=== PATIENT | female | born 1990 | race Hispanic/Latino ===

== ENCOUNTER 2018-12-23 12:34 | Emergency (ER) | payer MEDICAID ==
[2018-12-23 13:32] LABS: APPEARANCE,URINE Cloudy (CLEAR); BILIRUBIN,URINE Negative (NEGATIVE); COLOR,URINE Yellow (YELLOW); GLUCOSE, URINE (UA) Negative (NEGATIVE); KETONES,URINE Negative (NEGATIVE); LEUKOCYTE ESTERASE ,URINE Large (NEGATIVE); NITRATE,URINE Negative (NEGATIVE); OCCULT BLOOD,URINE Small (NEGATIVE); PROTEIN,URINE Negative (NEGATIVE)
[2018-12-23] MEDS ORDERED: KETOROLAC TROMETHAMINE 60 MG/2 ML VIAL ONE (14:07)
[2018-12-23] MEDS ORDERED: DIAZEPAM 5 MG TABLET ONE (14:07)
[2018-12-23 14:09] LABS: HCG,QUAL RESULT NEGATIVE (NEGATIVE)
[2018-12-23 14:28] LABS: BACTERIA,URINE Many /HPF (None Seen)
== END 2018-12-23 15:09 | disposition home or self-care (01) ==
LOC: EDH 12:34
DX: G57.02 Lesion of sciatic nerve, left lower limb (principal); N30.90 Cystitis, unspecified without hematuria; F12.10 Cannabis abuse, uncomplicated; Z72.0 Tobacco use
CPT/HCPCS: 81001; 81025; 96372; 99284; J1885

== ENCOUNTER 2024-11-17 18:09 | Emergency (ER) | payer MEDICARE, MEDICAID ==
[~2024-11-17] VITALS: Ht 152.4 cm; Wt 63.5 kg
--- NOTE | 2024-11-17 19:37 | ERN ---
General Chief Complaint: Eye Problems Stated Complaint: BILATERAL EYE, EAR PAIN Time Seen by MD: 18:29 Time Seen by Midlevel: 18:29 Source: patient History of Present Illness Initial Comments 34-year-old female presenting to the ER for evaluation of eye discomfort. Patient describes her eye discomfort as "zooming in and out". She became anxious shortly after so she decided to report to the ER for further evaluation Allergies: Coded Allergies: No Known Allergies (Unverified Allergy, Unknown, 12/23/18) Home Meds Active Scripts Hydroxyzine HCl (Hydroxyzine HCl) 10 Mg Tablet, 1 TAB PO BID for anxiety for 30 Days, #60 TAB 0 Refills Prov:ANTWON PULIDO 11/17/24 Past Medical History Past Medical History: Anxiety Past Surgical History: None Female( History) LMP: Nov 10, 2024 ROS Dictation CONSTITUTIONAL: Negative except for HPI HEAD/FACE: Negative except for HPI EENT: Negative except for HPI RESPIRATORY: Negative except for HPI GASTROINTESTINAL/ABDOMINAL: Negative except for HPI GENITOURINARY: Negative except for HPI MUSCULOSKELETAL: Negative except for HPI INTEGUMENTARY: Negative except for HPI NEUROLOGICAL/PSYCH: Negative except for HPI HEMATOLOGIC/LYMPHATIC: Negative except for HPI All Systems Negative, Except as noted above. 13 point review of systems assessed and all negative except for above. Physical Exam Physical Exam Dictation Vital Signs reviewed General Appearance: Alert, oriented x 3, no acute distress, well developed, nourished. Head and Face: non-traumatic. Eyes: PERRL, pink conjunctivas, eyelid no trauma, anterior chamber with arcus senilis. Ears: Pinnas intact and no signs of trauma or erythema ear canals clear and no discharge TM no erythema Nose: No discharge, no bleeding. Oropharynx: Mouth normal, tongue pink, pharynx clear,no erythema, tonsils no exudates, no abscesses noted, mucous membrane moist Neck: Supple, non-tender, no thyromegaly, no masses, no JVD, no bruits Breast:Deferred Chest:No tenderness, no crepitus, no paradoxical movement, no retractions Lungs:Clear, well-ventilated, symmetric, no rales, no wheezing, no rhonchi, no stridor, good breath sounds bilaterally Heart: Regular rate, regular rhythm, no murmur, no gallops Vascular: no peripheral edema, Abdomen: Soft, positive bowel sounds, nondistended, no guarding, nontender, no rebound, no masses no hepatomegaly, no splenomegaly, no Watkins's sign, no hernias. Rectal: Deferred Genital: Deferred Neurological: Normal speech, motor function intact, sensory function intact Musculoskeletal: Neck nontender, full range of motion, back nontender, full range of motion, Extremities: nontender, full range of motion Skin: Color pink, dry, no turgor, no rash, no lacerations, no abrasions, no contusions. Lymphatic: Deferred MDM MDM: Differential diagnosis: Wellness examination, conjunctivitis, anxiety There are no social concerns with this patient. Prescription drug management Prescriptions will include: Hydroxyzine Medical management and examination interpretation discussions were had by me with other qualified healthcare professionals as indicated for the patient's care. ED Course Vital Signs Date Time Temp Pulse Resp B/P (MAP) Pulse Ox O2 Delivery O2 Flow Rate FiO2 11/17/24 20:04 97.9 85 14 132/86 100 Room Air* 0 21 11/17/24 18:10 98.2 86 16 120/84 99 Room Air 0 DX & DISP Disposition: Discharge Departure Impression: Primary Impression: Anxiety Condition: Stable Scripts Hydroxyzine HCl (Hydroxyzine HCl) 10 Mg Tablet 1 TAB PO BID for anxiety for 30 Days, #60 TAB 0 Refills Prov: ANTWON PULIDO 11/17/24 Referrals: MONTSE MORALES (PCP) Time of Disposition: 19:53 I have reviewed the case, and I agree with, Diagnosis and Plan I performed the substantive portion of the visit. I have reviewed and personally made and approve the management plan that is documented in the note by myself or the XAVIER. I acknowledge for responsibility for the patient's management plan. ANTWON PULIDO Nov 17, 2024 19:37
[2024-11-17] MEDS ORDERED: HYDR-3830 PO (19:54)
[2024-11-17 20:04] VITALS: BP 132/86; PULSE 85; RESP 14; TEMP 97.8; O2SAT 100
== END 2024-11-17 20:05 | disposition home or self-care (01) ==
LOC: EDH 18:09
DX: F41.9 Anxiety disorder, unspecified (principal)
CPT/HCPCS: 99283

== ENCOUNTER 2024-12-15 08:34 | Emergency (ER) | payer MEDICARE, MEDICAID ==
[~2024-12-15] VITALS: Ht 152.4 cm; Wt 62.6 kg
[~2024-12-15 08:34] MED LIST: HYDR-3830 PO
--- NOTE | 2024-12-15 10:25 | ERN ---
ED Note History of Present Illness Stated Complaint: FOREIGN BODY IN THROAT Chief Complaint: Swallowed Foreign Body Time Seen by MD: 08:38 Dictation: 34-year-old female presenting to the emergency department with foreign body sensation to her throat after eating shrimp a few days ago. Patient denies any shortness a breath or vomiting Allergies: Coded Allergies: No Known Allergies (Unverified Allergy, Unknown, 12/23/18) Home Meds Active Scripts Hydroxyzine HCl (Hydroxyzine HCl) 10 Mg Tablet, 1 TAB PO BID for anxiety for 30 Days, #60 TAB 0 Refills Prov:ANTWON PULIDO PAC 11/17/24 Past Medical History Past Medical History: Anxiety Surgical History: None LMP: Dec 11, 2024 Review of System Dictation Constitutional: Negative for fever,chills, and weight loss Eyes: Negative for injury, pain,redness, and discharge ENT: Per HPI Cardiovascular: Negative for chest pain, palpitations, and edema Respiratory: Negative for shortness of breath, cough, and wheezing, Abdomen/GI: Negative for abdominal pain, nausea, vomiting, diarrhea, and constipation Back: Negative for injury and pain : Negative for injury, bleeding and discharge MS/Extremity: Negative for injury and deformity Skin: Negative for rash, and discoloration Neuro: Negative for headache, weakness, numbness, tingling, and seizure Psych: Negative for suicide ideation, homicidal ideation, and hallucinations Initial Vital Sign VS Vital Signs Date Time Temp Pulse Resp B/P (MAP) Pulse Ox O2 Delivery O2 Flow Rate FiO2 12/15/24 08:37 98.2 86 20 118/65 98 Room Air Physical Exam Dictation General: awake, alert, NAD Head/Face: Normocephalic, atraumatic Eyes: PERRL, EOMI, vision at baseline ENT: oral cavity clear, TMs clear, no signs of infection Neck: Trachea midline, supple, no nuchal rigidity Cardiovascular: RRR, normal S1/S2, No MRGs, no JVD Respiratory: CTAB, no respiratory distress, No rales or wheezes Abdomen: Soft, non-tender, non-distended, normal bowel sounds, no guarding or rebound. Skin: Warm, dry, normal turgor, no rash MS/Extremity: Pulses equal, no cyanosis, neurovascular intact, FROM Neuro: COAx4, GCS 15, strength 5/5, CN 2-12 intact, normal cerebellar exam, normal gait, Psych: Normal behavior, mood, and affect normal Results (Laboratory/Radiology) Laboratory/Radiology Laboratory Tests Test 12/15/24 08:45 Urine HCG, Qualitative NEGATIVE (NEGATIVE) Group A Streptococcus Rapid negative (NEGATIVE) X-RAY Comment: concern for foreign body object on x-ray we will order CT scan ED Course ED Course Orders Procedure Category Date Status Time Rapid (Group A Strep) LAB 12/15/24 Complete 08:41 ,Urine Test LAB 12/15/24 Complete 08:41 Neck Soft Tissue RAD 12/15/24 Resulted 08:51 Ct Neck Soft Tiss W/O CT 12/15/24 Resulted Contrast 09:51 Vital Signs Date Time Temp Pulse Resp B/P (MAP) Pulse Ox O2 Delivery O2 Flow Rate FiO2 12/15/24 08:37 98.2 86 20 118/65 98 Room Air Medical Decision Making MDM MDM: Differential diagnosis: Rationale: Tests considered and ordered secondary to shared decision making include: Previous outside records reviewed: Old ER visits. Risk of complication and/or morbidity or mortality of patient management: None Medications-Per medication reconciliation Need for hospitalization: Patient does not meet criteria for hospitalization. Need for emergency major/minor surgery: No There are no social concerns with this patient. Prescription drug management Prescriptions will include symptomatic care Patient's prior external medical records from other ER visits were reviewed by me as indicated. Prior testing and results from previous visits were reviewed. Prior tests were taken into account with medical decision making and resource utilization, independent historian/historians were used to obtain complete medical history. I independently interpreted the test that were performed, results were reviewed by me and considered findings on radiology if ordered. Medical management and examination interpretation discussions were had by me with other qualified healthcare professionals as indicated for the patient's care. 34-year-old female with foreign body sensation CT scan was negative stable for discharge prescriptions given DX & DISP Disposition: Discharge Departure Impression: Primary Impression: Dysphagia Condition: Stable Referrals: MONTSE MORALES (PCP) JESSE FARLEY MD Dec 15, 2024 10:25
--- NOTE | 2024-12-15 12:47 | HMCIMG ---
Cervical spine 2 views History: pain, FBO Comparison: none FINDINGS: C1 through the top of T1 are seen on the lateral view. The prevertebral soft tissues are normal. The vertebral bodies are well-aligned and without fracture. The disc spaces are normal as is the distance between the arch of C1 and the dens. The spinolaminar line is smooth and the spinous process tips intact. The AP view of the cervical spine is unremarkable. The soft tissue of the neck appears to be normal. There is no radiopaque foreign body. IMPRESSION: Normal soft tissue of the neck.).
--- NOTE | 2024-12-15 12:51 | HMCIMG ---
CT NECK SOFT TISS W/O CONTRAST INDICATION: Age: 34 years. Gender: Female. concern for FBO. ESTIMATED DOSE: DLP 191.20 mGycm TECHNIQUE: Contiguous helical axial images were obtained from the occiput to upper thoracic spine with IV contrast. 2D reformats were performed. 2-D postprocessing 5-mm coronal and sagittal reformations were performed. Automated exposure control was used to reduce patient radiation. COMPARISON: None FINDINGS: Intracranial contents: Unremarkable. Orbits: Unremarkable. Cervical spine: Multilevel degenerative disc disease without concerning bony lesions. Paranasal sinuses and mastoid air cells: Grossly clear. Vascular structures: Within normal limits. Lymph nodes: No suspicious lymph nodes by size criteria or by morphology. Visualized lung apices: Grossly clear. The parotid, sublingual, and submandibular glands are unremarkable. The thyroid gland is unremarkable. The retropharyngeal and nasopharyngeal soft tissues are within normal limits. The visualized musculature is unremarkable for age. The remainder of the osseous structures are without gross abnormalities. IMPRESSION: No radiopaque foreign body identified a CT of the soft tissue of the neck
[2024-12-15 13:29] VITALS: BP 111/77; PULSE 73; RESP 17; TEMP 98; O2SAT 100
== END 2024-12-15 13:36 | disposition home or self-care (01) ==
LOC: EDH 08:34
DX: R13.10 Dysphagia, unspecified (principal); F41.9 Anxiety disorder, unspecified; Z79.899 Other long term (current) drug therapy
CPT/HCPCS: 70360; 70490; 81025; 87880; 99284